=== PATIENT | female | born 1965 | race Caucasian/White ===

== ENCOUNTER 2025-03-06 00:16 | Emergency (ER) | payer OTHER ==
[~2025-03-06] VITALS: Ht 167.6 cm; Wt 72.2 kg
[2025-03-06 00:47] VITALS: O2SAT 100
[2025-03-06] MEDS: KETOROLAC 15MG/ML VIAL IM ONE (03:15)
[2025-03-06] MEDS ORDERED: NAPR-1176 MT (03:27)
[2025-03-06] MEDS ORDERED: LIDO-53 TP (03:27)
[2025-03-06 04:10] VITALS: BP 135/75; PULSE 89; RESP 16; TEMP 36.9; O2SAT 98
== END 2025-03-06 04:15 | disposition home or self-care (01) ==
LOC: ER 01:43
DX: S90.512A Abrasion, left ankle, initial encounter (principal); S90.511A Abrasion, right ankle, initial encounter; M25.571 Pain in right ankle and joints of right foot; M25.572 Pain in left ankle and joints of left foot; R60.9 Edema, unspecified; E78.00 Pure hypercholesterolemia, unspecified; Z79.1 Long term (current) use of non-steroidal anti-inflammatories (NSAID); X58.XXXA Exposure to other specified factors, initial encounter; Y93.89 Activity, other specified; Y92.89 Other specified places as the place of occurrence of the external cause; Y99.8 Other external cause status
CPT/HCPCS: 99283; 81025; 73610; 96372; J1885